=== PATIENT | female | born 1985 | race Caucasian/White ===

== ENCOUNTER 2017-08-03 05:42 | Inpatient (IN) | payer BC, OTHER ==
[2017-08-03] MEDS ORDERED: Bicitra 30 ML UDCUP PO SCH (06:04)
[2017-08-03] MEDS ORDERED: Ondansetron HCl/PF 4 MG/2 ML Vial IVP PRN ×4 (06:04→09:06)
[2017-08-03] MEDS ORDERED: CEFAZOLIN/Water 2 GM/20 ML SYRINGE SLOW IVP SCH (06:04)
[2017-08-03] MEDS ORDERED: Promethazine HCl 25 MG/ML VIAL IM PRN ×2 (06:04→08:43)
[2017-08-03] MEDS ORDERED: Zolpidem Tartrate 5 MG TAB PO PRN ×2 (06:04→09:06)
[2017-08-03] MEDS ORDERED: Lactated Ringer's 1,000 ML IV SCH ×2 (06:04→09:15)
[2017-08-03] MEDS ORDERED: Docusate 100 MG CAP PO PRN (06:04)
[2017-08-03 06:36] VITALS: BMI 35.0
[2017-08-03 06:40] LABS: Hemoglobin 12.7 g/dL (12.0-16.0); Mean Platelet Volume 8.4 fL (7.4-10.4); Platelet Count 184 thou/uL (130-400); RBC Distribution Width 11.4 % (11.5-14.5); Red Blood Cell (RBC) Count 3.64 mill/uL (4.20-5.40); White Blood Cell (WBC) Count 11.4 thou/uL (4.8-10.8)
[2017-08-03] MEDS ORDERED: Morphine PF 1 MG/ML SYR ONE (07:14)
[2017-08-03] MEDS ORDERED: Dexamethasone 4 mg/ml Vial ONE (07:15)
[2017-08-03] MEDS ORDERED: Bupivacaine 0.75% W/DEXTROSE 8.25% 2 ML AMP ONE (07:15)
[2017-08-03] MEDS ORDERED: Lidocaine 1% PF 5 ML VIAL ONE (07:15)
[2017-08-03] MEDS ORDERED: Oxytocin 10 UNITS/ML VIAL ONE (07:15)
[2017-08-03] MEDS ORDERED: Ketorolac Tromethamine 30 MG/ML VIAL ONE (07:15)
[2017-08-03] MEDS ORDERED: PHENYLEPHRINE-NS 100 MCG/ML 10 ML SYRINGE ONE ×2 (07:15→17:59)
[2017-08-03 07:18] LABS: Hep B Surf Ag Non-Reactive S/CO (NonReactive); Syphilis Antibody Nonreactive (Nonreactive); Syphilis Antibody Index 0.05 S/CO (<1.00 Non-Reactive)
[2017-08-03] MEDS ORDERED: diphenhydrAMINE 50 MG/ML VIAL ONE ×2 (07:37→17:59)
[2017-08-03] MEDS ORDERED: Promethazine HCl 25 MG SUPP PR PRN (08:43)
[2017-08-03] MEDS ORDERED: HYDROmorphone 2 MG/ML VIAL SLOW IVP PRN (08:43)
[2017-08-03] MEDS ORDERED: Naloxone HCl 0.4 mg/ml Vial IVP PRN ×2 (08:43)
[2017-08-03] MEDS ORDERED: Eucerin (Mineral Oil/Petrolatum,White) 30 gm Jar TOP PRN (08:43)
[2017-08-03] MEDS ORDERED: Naloxone HCl 0.4 mg/ml Vial IV PRN (08:43)
[2017-08-03] MEDS ORDERED: Meperidine HCl/PF 25 MG/ML VIAL SLOW IVP PRN (08:43)
[2017-08-03] MEDS ORDERED: diphenhydrAMINE 50 MG/ML VIAL IVP PRN (08:43)
[2017-08-03] MEDS ORDERED: Communication Order-Pharmacy FS SCH (08:45)
[2017-08-03] MEDS ORDERED: diphenhydrAMINE 25 MG CAP PO PRN (09:06)
[2017-08-03] MEDS ORDERED: Acetaminophen/Codeine 30-300mg Tablet PO PRN (09:06)
[2017-08-03] MEDS ORDERED: Acetaminophen 325 MG TAB PO PRN (09:06)
[2017-08-03] MEDS ORDERED: Lanolin Ointment 7 GM TUBE TOP PRN (09:06)
[2017-08-03] MEDS ORDERED: Bisacodyl 10 MG SUPP PR PRN (09:06)
[2017-08-03] MEDS ORDERED: Adacel (T-DAP) 0.5 ML VIAL IM ONE (09:06)
[2017-08-03] MEDS ORDERED: Meperidine HCl/PF 25 MG/ML VIAL IM PRN (09:06)
[2017-08-03] MEDS ORDERED: NS / Oxytocin 40 units/1000ml 1,000 ML IV SCH (09:15)
[2017-08-03] MEDS ORDERED: Meperidine HCl/PF 25 MG/ML VIAL ONE (10:07)
[2017-08-03] MEDS: Ketorolac Tromethamine 30 MG/ML VIAL IVP PRN ×2 (13:45→20:56)
[2017-08-03] MEDS ORDERED: Enoxaparin Sodium 30 MG/0.3 ML SYRINGE SC SCH (15:00)
[2017-08-03] MEDS: Ibuprofen 800 MG TAB PO SCH (15:32)
[2017-08-03] MEDS ORDERED: Dexamethasone 20 MG/5 ML VIAL ONE (17:59)
[2017-08-03] MEDS: Docusate Calcium (SURFAK) 240 MG CAP PO SCH (20:58)
[2017-08-04] MEDS: Simethicone Chewable 80 MG TAB PO PRN ×2 (01:42→20:07)
[2017-08-04] MEDS: Ferrous Sulfate 325 MG TAB PO SCH ×3 (02:29→22:24)
[2017-08-04] MEDS: Ibuprofen 800 MG TAB PO SCH ×4 (02:30→21:32)
[2017-08-04 05:15] LABS: Hemoglobin 10.6 g/dL (12.0-16.0); Mean Corpuscular HGB CONC 34.3 g/dL (32.0-36.0); Mean Corpuscular Hemoglobin 34.4 pg (27.0-31.0); Mean Platelet Volume 8.9 fL (7.4-10.4); Platelet Count 178 thou/uL (130-400); RBC Distribution Width 11.6 % (11.5-14.5); Red Blood Cell (RBC) Count 3.07 mill/uL (4.20-5.40); White Blood Cell (WBC) Count 19.9 thou/uL (4.8-10.8)
[2017-08-04] MEDS: Ketorolac Tromethamine 30 MG/ML VIAL IVP PRN (06:34)
[2017-08-04] MEDS ORDERED: Sodium Chloride 0.9% 10 ML ONE (06:41)
[2017-08-04] MEDS: Docusate Calcium (SURFAK) 240 MG CAP PO SCH ×2 (08:59→21:32)
[2017-08-04] MEDS: Prenatal Vitamin 1 TAB PO SCH (08:59)
[2017-08-04] MEDS: Acetaminophen/Codeine 30-300mg Tablet PO PRN ×2 (13:10→20:07)
[2017-08-05] MEDS: Acetaminophen/Codeine 30-300mg Tablet PO PRN ×2 (05:15→12:58)
[2017-08-05] MEDS: Ibuprofen 800 MG TAB PO SCH ×2 (05:15→12:58)
[2017-08-05 09:17] VITALS: BP 106/55; TEMP 98.3
[2017-08-05] MEDS: Prenatal Vitamin 1 TAB PO SCH (09:40)
[2017-08-05] MEDS: Docusate Calcium (SURFAK) 240 MG CAP PO SCH (09:40)
[2017-08-05] MEDS: Ferrous Sulfate 325 MG TAB PO SCH (09:41)
--- NOTE | 2017-08-05 14:14 | OP ---
DATE OF OPERATION: 08/03/2017 ATTENDING STAFF PHYSICIAN: Noam Marina M.D. SURGEONS: 1. Noam Marina M.D. 2. Liliane Rainey M.D. [employer] SURGEON: Uyen Cook M.D. PREOPERATIVE DIAGNOSES: 1. Term intrauterine at 39 weeks. 2. Prior section. 3. Poor obstetric history (spontaneous x8). 4. Thrombophilia. POSTOPERATIVE DIAGNOSES: 1. Term intrauterine at 39 weeks. 2. Prior section. 3. Poor obstetric history (spontaneous x8). 4. Thrombophilia. PROCEDURE PERFORMED: Repeat low transverse section. ANESTHESIA: Spinal catheterization. FINDINGS: 1. A vigorous female , 7 pounds 2 ounces, Apgars 8 and 8. 2. Normal uterus, tubes, and ovaries. COMPLICATIONS: None. SPECIMENS REMOVED: Cord blood. BLOOD LOSS: 500 mL. DESCRIPTION OF PROCEDURE: After thorough consent and counseling, Mrs. Wesley was taken to the oper ating room and adequate level of anesthesia was obtained via spinal catheterization. The patient was prepped and draped in the usual sterile fashion for abdominal surgery. A Newberry was placed in the bl adder, which was noted to be draining clear urine. Attention was then turned to performing the repea t low transverse section. A Pfannenstiel incision was made and carried sharply to the fascia which was also sharply incised. T he midline was identified and the rectus muscles were retracted laterally. The abdominal peritoneal cavity was entered with usual safeguards carried out. A retractor was placed and a bladder flap was created on the vesicouterine peritoneum. A bladder blade was then placed. A low transverse incision was made on the well-developed lower uterine segment. Upon entering the amniotic sac, copious amoun t of clear amniotic fluid was visualized. The infant was noted to be vertex presentation in the occi put anterior position, still high in the pelvis. Head was carefully delivered in an atraumatic fashi on and baby was bulb suctioned on the abdomen. Shoulders and body were then carefully delivered. Th e cord was doubly clamped and cut and infant was handed to the pediatric team in attendance for the d elivery. The was a vigorous viable female weighing 7 pounds 2 ounces with Apgars of 8 and 8 o btained at 1 and 5 minutes respectively. Cord blood was obtained. The placenta was manually removed from the uterus. The uterus was exteriorized and good tone was noted. The uterine cavity was clear ed of any remaining clot and fluid. The low transverse incision was closed with a running locking li gature of #1 chromic. Several qaloes-lm-[id number] ligatures of #1 chromic were also placed to facilitate strength and hemostasis. The vesicouterine peritoneum was reapproximated to the lower segment with a running ligature of 3-0 Monocryl. Surgical site was carefully inspected and noted to be hemostatic . The uterus, fallopian tubes and ovaries were normal in appearance. The posterior cul-de-sac and g utters were cleared of clot and fluid. The uterus was returned to the abdomen and good tone and hemo stasis was again appreciated. Seprafilm was applied to the low transverse incision in the anterior a spect of the uterus for adhesion prevention. Once again, the incision was noted to be hemostatic. L ap, sponge, and needle counts were correct. The peritoneum was then closed with a running ligature o f 2-0 Vicryl for adhesion prevention. The rectus muscles were reapproximated in the midline with int errupted ligatures of 2-0 Vicryl. The fascia was then closed with 2 ligatures of 0 Vicryl suture, wh ich were tied in the midline. Good fascial integrity was appreciated. The incision was irrigated wi th copious amount of warm normal saline. The subcutaneous tissue was closed with interrupted ligatur es of 2-0 plain. The fascia was then closed with a subcuticular stitch of 4-0 Monocryl and dressed w ith Dermabond. Pressure dressing aspects were subsequently placed. Lap, sponge, and needle counts c orrect x3. Estimated blood loss during the surgical procedure was approximately 500 mL. The patient was taken to recovery room in good condition. Immediately following surgery, the patient and her were made aware of the surgical procedure and operative findings. Questions were an swered to their satisfaction. The family was very appreciative of the care rendered here at [facility] th is morning. Mother and baby doing well postoperatively.
== END 2017-08-05 14:00 | disposition home or self-care (01) | DRG 765 ==
LOC: L&D 05:42 → 3SW 11:29
PROVIDERS: ADMIT Obstetrics & Gynecology; ATTEND Obstetrics & Gynecology
PROC: 10D00Z1 Extraction of Products of Conception, Low, Open Approach (ICD-10-PCS; principal; 2017-08-03)
DX: O80 Encounter for full-term uncomplicated delivery (principal); O99.12 Other diseases of the blood and blood-forming organs and certain disorders involving the immune mechanism complicating childbirth; D68.59 Other primary thrombophilia; O34.211 Maternal care for low transverse scar from previous cesarean delivery; Z3A.39 39 weeks gestation of pregnancy; Z37.0 Single live birth
CPT/HCPCS: 36415; 51702; 85027; 86780; 86850; 86900; 86901; 87340; A4216; J1100; J1200; J1650; J1885; J2001; J2175; J2274; J2405; J2590; J3490

== ENCOUNTER 2017-11-13 09:50 | Emergency (ER) | payer OTHER, SELFPAY ==
[2017-11-13 10:29] LABS: #Eosinphils 0.2 thou/uL (0.0-0.7); #Monocytes 0.7 thou/uL (0.11-0.59); #Neutrophils 3.9 thou/uL (1.40-6.50); %Basophils 0.5 % (0.0-1.0); %Lymphocytes 29.7 % (21.0-51.0); %Monocytes 9.7 % (0.0-10.0); %Neutrophils 57.1 % (42.0-75.0); Hemoglobin 13.9 g/dL (12.0-16.0); Mean Corpuscular HGB CONC 33.9 g/dL (32.0-36.0); Mean Corpuscular Hemoglobin 34.1 pg (27.0-31.0); Mean Platelet Volume 8.6 fL (7.4-10.4); Platelet Count 216 thou/uL (130-400); RBC Distribution Width 11.7 % (11.5-14.5); Red Blood Cell (RBC) Count 4.08 mill/uL (4.20-5.40); White Blood Cell (WBC) Count 6.7 thou/uL (4.8-10.8)
[2017-11-13 10:53] LABS: ALT (SGPT) 63 U/L (8-55); AST (SGOT) 90 U/L (5-34); Albumin 4.2 g/dL (3.5-5.0); Alkaline Phosphatase 87 U/L (40-150); Anion Gap 12 mmol/L (10-20); BUN (Urea Nitrogen) 10 mg/dL (7.0-18.7); Bilirubin, Total 1.3 mg/dL (0.2-1.2); CK (CPK) 89 U/L (29-168); Calc. Creatinine Clearance 0 mL/min (70-130); Calcium 9.9 mg/dL (7.8-10.44); Carbon Dioxide 30 mmol/L (22-29); Chloride 101 mmol/L (98-107); Estimated GFR-MDRD 75; Globulin 3.1 g/dL (2.4-3.5); Glucose 74 mg/dL (70-105); Lipase 11 U/L (8-78); Potassium 4.4 mmol/L (3.5-5.1); Protein, Total 7.3 g/dL (6.0-8.3); Sodium 139 mmol/L (136-145)
[2017-11-13 10:54] LABS: CKMB 0.8 ng/mL (0-6.6); Troponin I Less than 0.010 ng/mL (< 0.028)
--- NOTE | 2017-11-13 11:25 | RAD ---
PORTABLE CHEST: HISTORY: Chest pain. FINDINGS: Heart size and mediastinum are within normal limits. Lungs are clear of infiltrates. No significant bony findings. IMPRESSION: No active intrathoracic disease. POS: [facility]
[2017-11-13 11:27] LABS: Bilirubin Negative (Negative); Blood, Urine Negative (Negative); Clarity CLEAR (Clear); Glucose, Urine (Dipstick) Negative (Negative); Leukocyte Trace (Negative); Nitrite Negative (Negative); Protein, Urine (Dipstick) Negative (Neg-Trace); Specific Gravity, Urine 1.009 (1.002-1.036); pH, Urine 7.5 (5.0-9.0)
[2017-11-13 11:28] LABS: Pregnancy Test - Urine (BHCG) Negative (Negative); Pregu Control Background? CLEAR/WHITE (CLR/WHITE); Pregu Control Bar Appear? YES (CONTROL BAR); Specific Gravity 1.009 (1.002-1.036)
[2017-11-13] MEDS ORDERED: Ketorolac Tromethamine 60 MG/2 ML VIAL ONE (11:32)
[2017-11-13 11:33] LABS: Bacteria/HPF Rare-Few HPF (None Seen); Hyaline Casts/LPF 0-3 HYALINE CAST LPF (0-3 Hyaline); Pathc Cast-AUWi Flag 0.43 (0-2.49); RBC/HPF 0-3 HPF (0-3); WBC/HPF 0-3 HPF (0-3)
--- NOTE | 2017-11-17 12:23 | EKG ---
Test Reason : Blood Pressure : / mmHG Vent. Rate : 053 BPM Atrial Rate : 053 BPM P-R Int : 132 ms QRS Dur : 084 ms QT Int : 422 ms P-R-T Axes : 043 029 040 degrees QTc Int : 395 ms Sinus bradycardia Otherwise normal ECG Confirmed by ANDRÉS RAMIREZ ([id number]), science editor RAGHU BOO ([id number]) on 11/17/2017 12:23:25 PM Referred By: Confirmed By:ANDRÉS RAMIREZ
== END 2017-11-13 11:55 | disposition home or self-care (01) ==
LOC: ERS 09:50
DX: R07.89 Other chest pain (principal); M54.9 Dorsalgia, unspecified; K21.9 Gastro-esophageal reflux disease without esophagitis; Z79.899 Other long term (current) drug therapy
CPT/HCPCS: 36415; 71045; 80053; 81003; 81015; 81025; 82553; 83690; 84484; 85025; 93005; 96372; J1885

== ENCOUNTER 2018-08-20 05:56 | Day surgery (SDC) | payer OTHER ==
[2018-08-13 10:38] VITALS: BMI 29.2
[2018-08-13 13:37] LABS: Hemoglobin 13.8 g/dL (12.0-16.0); Mean Corpuscular HGB CONC 33.7 g/dL (32.0-36.0); Platelet Count 201 thou/uL (130-400); RBC Distribution Width 11.7 % (11.5-14.5); Red Blood Cell (RBC) Count 3.93 mill/uL (4.20-5.40); White Blood Cell (WBC) Count 6.6 thou/uL (4.8-10.8)
[2018-08-13 13:40] LABS: BHCG - Serum Negative (NEGATIVE); Pregs Control Background? CLEAR/WHITE (CLR/WHITE); Pregs Control Bar Appear? YES (CONTROL BAR)
[2018-08-20] MEDS ORDERED: Fentanyl 100 MCG/2 ML VIAL ONE ×2 (06:51)
[2018-08-20] MEDS ORDERED: CeleCOXIB 100 MG CAP ONE (07:05)
[2018-08-20] MEDS ORDERED: Lidocaine 1% w/Epinephrine 1:100K 20 ML VIAL ONE (07:14)
[2018-08-20] MEDS ORDERED: Ferric Subsulfate (ASTRINGYN) 8 ML VIAL ONE ×2 (07:14→08:30)
[2018-08-20] MEDS ORDERED: Midazolam HCl 2 mg/2 ml Vial ONE (07:18)
[2018-08-20] MEDS ORDERED: HYDROcodone/Acetaminophen 5/325 mg Tablet ONE (09:10)
--- NOTE | 2018-08-20 11:15 | OP ---
DATE OF PROCEDURE: 08/20/2018 PREOPERATIVE DIAGNOSIS: SAMREEN-3 at the endocervical margin after loop electrosurgical excision procedure in June of 2018. POSTOPERATIVE DIAGNOSIS: SAMREEN-3 at the endocervical margin after loop electrosurgical excision procedure in June of 2018. PROCEDURES PERFORMED: Exam under anesthesia with cold knife cone and endocervical curettage. ASSIST: None. ANESTHESIA: LMA per Dr. Clement. COMPLICATIONS: None. EBL: Less than 5 mL. OPERATIVE FINDINGS: 1. Normal-appearing cervix well healed after recent LEEP procedure in June of 2018. 2. Combat hemostatic at the completion of procedure. DESCRIPTION OF PROCEDURE: The patient was taken back to the OR with IV fluids running. When she was in the OR, she was placed in dorsal supine position and anesthesia was obtained. Once the patient was asleep, she was placed in low dorsal lithotomy position. The vagina was prepped and draped in normal fashion. The bladder was drained. An operative speculum was placed in the vagina and the cervix was easily visualized and grasped with a single-tooth tenaculum. A 10 mL of xylocaine with epinephrine was injected as a paracervical block. After the paracervical block was completed, a [place] blade was used to remove a cervical cone specimen in its entirety. The complete cone specimen was then removed and sent for pathologic review. The postprocedure endocervical curettage was performed and sent as a separate specimen. The cervical cone bed was then cauterized with a rollerball on bipolar cautery. Once hemostasis was achieved, Monsel's paste was placed over the cervical bed as well. The tenaculum site was examined with no bleeding noted. After a period of observation and no bleeding noted, the speculum was removed. The counts were correct. The patient was then clean, dry, and taken to recovery room in good condition. Job ID: [id number]
[2018-08-20] MEDS ORDERED: Dexamethasone 20 MG/5 ML VIAL ONE (12:12)
[2018-08-20] MEDS ORDERED: Ketorolac Tromethamine 30 MG/ML VIAL ONE (12:12)
[2018-08-20] MEDS ORDERED: PROPOFOL 200 MG/20 ML VIAL ONE (12:12)
[2018-08-20] MEDS ORDERED: Ondansetron PF 4 MG/2 ML Vial ONE (12:12)
[2018-08-20] MEDS ORDERED: ePHEDrine 50 MG/ML VIAL ONE (12:12)
[2018-08-20] MEDS ORDERED: Glycopyrrolate 0.2 MG/ML 5 ML SYRINGE ONE (12:12)
[2018-08-20] MEDS ORDERED: Lidocaine 1% PF 5 ML VIAL ONE (12:12)
== END 2018-08-20 09:35 | disposition home or self-care (01) ==
LOC: SDC 05:56
PROVIDERS: ATTEND Obstetrics & Gynecology
PROC: 0UBC7ZX Excision of Cervix, Via Natural or Artificial Opening, Diagnostic (ICD-10-PCS; principal; 2018-08-20)
DX: D06.0 Carcinoma in situ of endocervix (principal); N88.8 Other specified noninflammatory disorders of cervix uteri; F17.210 Nicotine dependence, cigarettes, uncomplicated; Z79.899 Other long term (current) drug therapy; Z98.890 Other specified postprocedural states
CPT/HCPCS: 84703; 85027; 86850; 86900; 86901; 88305; 88307; J0690; J1100; J1885; J2001; J2250; J2405; J2704; J3010; J3490